=== PATIENT | female | born 1970 ===

== ENCOUNTER 2021-05-01 06:52 | Day surgery (SDC) | payer OTHER | END 2021-05-01 15:10 | disposition home or self-care (01) | LOC: CIR.AMB 06:52 | PROVIDERS: ATTEND Orthopaedic Surgery Sports Medicine | DX: M75.122 Complete rotator cuff tear or rupture of left shoulder, not specified as traumatic (principal); M75.42 Impingement syndrome of left shoulder; M75.22 Bicipital tendinitis, left shoulder; M24.012 Loose body in left shoulder; Z20.822 Contact with and (suspected) exposure to COVID-19 ==